=== PATIENT | male | born 1935 | race Caucasian/White ===

== ENCOUNTER 2017-06-08 12:30 | Outpatient (CLI) | payer MEDICARE ==
--- NOTE | 2017-06-08 15:18 | ULT ---
BILATERAL LOWER EXTREMITY VENOUS DOPPLER ULTRASOUND: Date: 06/08/17 HISTORY: Left lower extremity swelling, right lower extremity pain, assess for deep venous thrombosis. TECHNIQUE: Multiplanar Andrea scale sonographic imaging of the venous structures of bilateral lower extremities ob tained with color flow and spectral analysis. FINDINGS: Bilateral common femoral veins, greater saphenous veins, profunda femoral veins, femoral veins, popli teal veins, and posterior tibial veins are patent. There is normal blood flow, augmentation, and comp ression within the deep venous system bilaterally. Phasic blood flow is noted within the bilateral lower extremity venous structures. IMPRESSION: No evidence for deep venous thrombosis of either lower extremity. Phasic blood flow is seen throughou t bilateral lower extremity venous structures. POS: [facility]
== END 2017-06-08 12:31 | disposition home or self-care (01) ==
LOC: ULT 12:30
PROVIDERS: ATTEND Family Medicine
DX: M79.89 Other specified soft tissue disorders (principal); M79.661 Pain in right lower leg
CPT/HCPCS: 93970